=== PATIENT | female | born 1990 | race Caucasian/White ===

== ENCOUNTER 2017-10-25 17:40 | Emergency (ER) | payer OTHER ==
[2017-10-25 18:23] LABS: ABSOLUTE EOSINOPHILS # (AUTO) 0.3 10^3/uL (0.0-0.6); ABSOLUTE LYMPHOCYTES (AUTO) 2.6 10^3/uL (0.5-4.7); ABSOLUTE MONOCYTES (AUTO) 0.7 10^3/uL (0.1-1.4); ABSOLUTE NEUT (AUTO) 7.3 10^3/uL (1.7-8.2); BASOPHILS % (AUTO) 0.4 % (0-2); EOSINOPHILS % (AUTO) 3.1 % (0-6); HEMOGLOBIN 13.9 g/dL (12.0-15.5); LYMPHOCYTES % (AUTO) 23.6 % (13-45); MEAN CORPUSCULAR HEMOGLOBIN 30.2 pg (27.0-33.4); MEAN CORPUSCULAR HGB CONC 34.9 g/dL (32.0-36.0); MEAN CORPUSCULAR VOLUME 87 fl (80-97); MONOCYTES % (AUTO) 6.7 % (3-13); PLATELET COUNT 186 10^3/uL (150-450); RED BLOOD COUNT 4.61 10^6/uL (3.72-5.28); RED CELL DISTRIBUTION WIDTH 12.5 % (11.5-14.0); SEGMENTED NEUTROPHILS % (AUTO) 66.2 % (42-78); TOTAL CELLS COUNTED % (AUTO) 100 %
[2017-10-25 18:28] LABS: APPEARANCE,URINE SLIGHTLY-CLOUDY; BILIRUBIN,URINE NEGATIVE (NEGATIVE); COLOR,URINE YELLOW; GLUCOSE, URINE NEGATIVE (NEGATIVE); KETONES,URINE NEGATIVE (NEGATIVE); LEUKOCYTE ESTERASE,URINE SMALL (NEGATIVE); NITRITE,URINE NEGATIVE (NEGATIVE); PROTEIN,URINE NEGATIVE (NEGATIVE); URINE SPECIFIC GRAVITY 1.027
[2017-10-25 18:45] LABS: ALANINE AMINOTRANSFERASE 23 U/L (9-52); ALBUMIN 4.2 g/dL (3.5-5.0); ALKALINE PHOSPHATASE 53 U/L (38-126); ANION GAP 14 (5-19); ASPARTATE AMINO TRANSFERASE 21 U/L (14-36); BILIRUBIN,DIRECT 0.2 mg/dL (0.0-0.4); BILIRUBIN,TOTAL 0.2 mg/dL (0.2-1.3); BLOOD UREA NITROGEN 8 mg/dL (7-20); CALCIUM 9.4 mg/dL (8.4-10.2); CARBON DIOXIDE 26 mmol/L (22-30); CHLORIDE 101 mmol/L (98-107); GLUCOSE 88 mg/dL (75-110); POTASSIUM 3.7 mmol/L (3.6-5.0); SODIUM 140.7 mmol/L (137-145); TOTAL PROTEIN 7.7 g/dL (6.3-8.2)
--- NOTE | 2017-10-25 19:20 | RADIOLOGY REPORT (SQ) ---
EXAM DESCRIPTION: U/S OB TRANSVAG W/DOPPLER COMPLETED DATE/TIME: 10/25/2017 7:09 pm REASON FOR STUDY: bleeding COMPARISON: None. TECHNIQUE: Transvaginal static and realtime grayscale images acquired of the pelvis. Additional alva cted spectral and color Doppler images recorded. All images stored on PACs. bHCG: Pending. CLINICAL DATES: LMP 08/24/2017. 8 weeks 6 days. LIMITATIONS: None. FINDINGS: FETUS: Living intrauterine . ULTRASOUND EGA: 8 weeks 6 days ULTRASOUND DANIEL: 05/31/2018 CRL: 2.2 cm FHR: 160 beats per minute. SUBCHORIONIC BLEED: Yes SIZE OF BLEED: Small UTERUS: No masses or anomalies. 11.9 x 6.8 x 7.6 cm. CERVICAL LENGTH: 3.7 cm. Closed. RIGHT ADNEXA: Ovary not seen. No adnexal free fluid. No adnexal masses. LEFT ADNEXA: Ovary not seen. No adnexal free fluid. No adnexal masses. FREE FLUID: None. OTHER: No other significant finding. IMPRESSION: LIVING INTRAUTERINE . EGA 8 weeks 6 days. Trimester of : First - 0 to 13 weeks. TECHNICAL DOCUMENTATION: JOB ID: [id number] [employer]- All Rights Reserved rev Reading location - IP/workstation name: [email or web address]
--- NOTE | 2017-10-25 20:46 | ER Document Report ---
ED General - General Mode of Arrival: Ambulatory Information source: Patient TRAVEL OUTSIDE OF THE [place] IN LAST 30 DAYS: No <KETAN SINGH - Last Filed: 10/25/17 20:51> <CLYDE CRUZ - Last Filed: 10/25/17 23:43> - General Chief Complaint: Vag Bleeding, +preg <12wks Stated Complaint: VAGINAL BLEEDING Time Seen by Provider: 10/25/17 17:53 Notes: 27 y.o female presents to the ED with vaginal bleeding of onset today. Pt reports that she is 9 weeks but denies seeing an OBGYN yet. She denies any abd pain. Pt denies being previously. She denies any other medical issues. She reports that she is taking vitamins. Pt reports some intermittent nausea and BRADY during but denies any nausea or BRADY currently. She was concerned for which medications she can take during and denies taking any medications during her for her nausea or BRADY. Pt reports her blood type is B+. (KETAN SINGH) - Related Data Allergies/Adverse Reactions: No Known Allergies Allergy (Verified 10/25/17 17:55) Past Medical History - General Information source: Patient - Social History Smoking Status: Never Smoker Frequency of alcohol use: None Drug Abuse: None Patient has suicidal ideation: No Patient has homicidal ideation: No Renal/ Medical History: Denies: Hx Peritoneal Dialysis <KETAN SINGH - Last Filed: 10/25/17 20:51> - Social History Family History: Reviewed & Not Pertinent <CLYDE CRUZ - Last Filed: 10/25/17 23:43> Review of Systems - Review of Systems Constitutional: No symptoms reported EENT: No symptoms reported Cardiovascular: No symptoms reported Respiratory: No symptoms reported Gastrointestinal: See HPI. denies: Abdominal pain Genitourinary: No symptoms reported Female Genitourinary: See HPI, - 9 weeks, Vaginal bleeding Musculoskeletal: No symptoms reported Skin: No symptoms reported Hematologic/Lymphatic: No symptoms reported Neurological/Psychological: No symptoms reported -: Yes All other systems reviewed and negative <KETAN SINGH - Last Filed: 10/25/17 20:51> Physical Exam <KETAN SINGH - Last Filed: 10/25/17 20:51> <CLYDE CRUZ - Last Filed: 10/25/17 23:43> - Vital signs Vitals: Temp Pulse Resp BP Pulse Ox 98.6 F 94 16 123/79 97 10/25/17 17:45 10/25/17 17:45 10/25/17 17:45 10/25/17 17:45 10/25/17 17:45 - Notes Notes: Physical Exam: General: Alert, appears well. HEENT: Normocephalic. Atraumatic. PERRL. Extraocular movements intact. Oropharynx clear. Neck: Supple. Non-tender. Respiratory: No respiratory distress. Clear and equal breath sounds bilaterally. Cardiovascular: Regular rate and rhythm. Abdominal: Normal Inspection. Non-tender. No distension. Normal Bowel Sounds. Back: Non-tender. No deformity or step off. Extremities: Moves all four extremities. Upper extremities: Normal inspection. Normal ROM. Lower extremities: Normal inspection. No edema. Normal ROM. Neurological: Normal cognition. AAOx3. Normal speech. Psychological: Normal affect. Normal Mood. Skin: Warm. Dry. Normal color. (KETAN SINGH) - Genitourinary Notes: Deferred (CLYDE CRUZ) Course - Laboratory Result Diagrams: 10/25/17 18:10 10/25/17 18:10 <KETAN SINGH - Last Filed: 10/25/17 20:51> - Laboratory Result Diagrams: 10/25/17 18:10 10/25/17 18:10 - Diagnostic Test Radiology reviewed: Reports reviewed <CLYDE CRUZ - Last Filed: 10/25/17 23:43> - Re-evaluation Re-evalutation: 10/25/17 Patient is a 27-year-old female who comes in complaining of some vaginal bleeding cramping. She is . By ultrasound, 8 weeks and 6 days. Patient has Rh+ blood type. Blood work within normal limits. No complaints at this time. Patient will be discharged with a copy of her blood work and ultrasound and is to follow-up with [facility] CONS[facility]. Return if any worsening or concerning symptoms. Understands agrees with plan. Stable for discharge. (CLYDE CRUZ) - Vital Signs Vital signs: Temp Pulse Resp BP Pulse Ox 98.5 F 87 18 113/56 L 100 10/25/17 21:02 10/25/17 21:02 10/25/17 21:02 10/25/17 21:02 10/25/17 21:02 - Laboratory Laboratory results interpreted by me: 10/25/17 10/25/17 10/25/17 18:10 18:10 18:10 WBC 11.0 H Creatinine 0.49 L Beta HCG, Quant 63663.00 H Urine Blood LARGE H Urine Urobilinogen 2.0 H Ur Leukocyte Esterase SMALL H Urine Ascorbic Acid 40 H Discharge <KETAN SINGH - Last Filed: 10/25/17 20:51> <CLYDE CRUZ - Last Filed: 10/25/17 23:43> - Discharge Clinical Impression: Bleeding in early Condition: Stable Disposition: HOME, SELF-CARE Instructions: Bleeding During Early ([facility]) Additional Instructions: Please follow-up with an [facility] CONSULTANT. Please take a copy of your paperwork with you. Avoid ibuprofen or any other NSAIDs in . Prescriptions: Metoclopramide HCl [Reglan 10 mg Tablet] 1 - 2 tab PO ASDIR PRN #25 tablet PRN Reason: Referrals: [facility] [Provider Group] - Follow up in 1 week Scribe Attestation: 10/25/17 23:43 I personally performed the services described in the documentation, reviewed and edited the documentation which was dictated to the scribe in my presence, and it accurately records my words and actions. (CLYDE CRUZ) Scribe Documentation - Scribe Written by Roma:: Roma Nelson 10/25/172045 acting as scribe for :: Hoang <KETAN SINGH - Last Filed: 10/25/17 20:51>
[2017-10-25 21:12] VITALS: BP 113/56
== END 2017-10-25 21:11 | disposition home or self-care (01) ==
LOC: ER 17:40
DX: O20.8 Other hemorrhage in early pregnancy (principal); O26.891 Other specified pregnancy related conditions, first trimester; R10.9 Unspecified abdominal pain; Z3A.09 9 weeks gestation of pregnancy
CPT/HCPCS: 36415; 76817; 80053; 81001; 84702; 85025; 86900; 86901; 93976; 99284